=== PATIENT | female | born 1975 | race Caucasian/White ===

== ENCOUNTER 2017-03-27 14:42 | Emergency (ER) | payer OTHER ==
[~2017-03-27] VITALS: Ht 162.6 cm; Wt 47.0 kg
[~2017-03-27 14:42] MED LIST: ERGO1CAP30 PO; HYDR-3533 PO; LEVO.075 PO; PANT40TA3 PO; RECLTAB PO
[2017-03-27 15:04] VITALS: BP 106/70; PULSE 84; RESP 16; TEMP 98.1; O2SAT 99
[2017-03-27] MEDS ORDERED: SODIUM CHLOR 0.9% 1000 ML INJ 1,000 ML IV SCH (15:25)
[2017-03-27] MEDS ORDERED: KETOROLAC TROMETHAMINE 30 MG/ML (IVP) VIAL IV PUSH ONE (15:30)
[2017-03-27] MEDS ORDERED: MORPHINE SULFATE 4 MG/ML INJ IV PUSH ONE (15:30)
[2017-03-27] MEDS ORDERED: ONDANSETRON HCL 4 MG/2 ML VIAL IVP ONE (15:30)
[2017-03-27] MEDS ORDERED: SODIUM CHLORIDE 0.9% FLUSH 10 ML FLUSH IV FLUSH PRN (15:30)
[2017-03-27 15:46] LABS: BLOOD, URINE LARGE (NEG); GLUCOSE,URINE NEG (NEG); KETONE, URINE TRACE mg/dL (NEG); NITRITE,URINE NEG (NEG)
[2017-03-27 15:50] LABS: METHOD OF COLLECTION CLEAN CATCH; URINE COLOR YELLOW (YELLW/STRAW)
[2017-03-27 15:51] LABS: BACTERIA, URINE MOD /hpf; CALCIUM OXALATE CRYSTALS,URINE OCC /hpf; COMMENT (UR) CULTURE INDICATED; CULTURE IF INDICATED CULTURE INDICATED; SQUAMOUS EPITHELIAL CELL URINE 0-5 /hpf (0-5)
[2017-03-27 16:00] LABS: AUTOMATED NEUTROPHIL # 7.8 TH/MM3 (1.8-7.7); BASOPHIL # 0.1 TH/MM3 (0-0.2); BASOPHIL % 0.8 % (0.0-2.0); EOSINOPHIL # 0.1 TH/MM3 (0-0.4); EOSINOPHIL % 0.8 % (0.0-4.0); HEMATOCRIT 30.8 % (35.0-46.0); LYMPH % 16.2 % (9.0-44.0); LYMPHOCYTE # 1.6 TH/MM3 (1.0-4.8); MEAN CELL VOLUME 68.3 FL (80.0-100.0); MEAN CORPUSCULAR HEMOGLOBIN 20.7 PG (27.0-34.0); MEAN CORPUSCULAR HGB CONC 30.3 % (32.0-36.0); MONO % 5.5 % (0.0-8.0); NEUT % 76.7 % (16.0-70.0); PLATELET COUNT 424 TH/MM3 (150-450); RED CELL DISTRIBUTION WIDTH 17.1 % (11.6-17.2); WHITE BLOOD COUNT 10.2 TH/MM3 (4.0-11.0)
[2017-03-27 16:01] VITALS: RESP 16; O2SAT 99
[2017-03-27 16:03] LABS: HEMO FLAGS AUTO DIFF
[2017-03-27 16:10] LABS: POTASSIUM 3.2 MEQ/L (3.5-5.1)
[2017-03-27 16:15] LABS: APTT (PATIENT) 22.9 SEC (24.3-30.1); BICARBONATE 23.3 MEQ/L (21.0-32.0); INTERNATIONAL NORMALIZED RATIO 0.9 RATIO
[2017-03-27 16:19] LABS: INDIRECT BILIRUBIN 0.3 MG/DL (0.0-0.8); TOTAL BILIRUBIN ADULT 0.4 MG/DL (0.2-1.0)
--- NOTE | 2017-03-27 16:28 | RADHPO ---
EXAM DATE/TIME: 03/27/2017 16:08 [place] COMPARISON: No previous studies available for comparison. INDICATIONS : Left flank pain. ORAL CONTRAST: No oral contrast ingested. RADIATION DOSE: 6.15 CTDIvol (mGy) MEDICAL HISTORY : None SURGICAL HISTORY : None. ENCOUNTER: Initial ACUITY: 1 day PAIN SCALE: 1/10 LOCATION: Left flank TECHNIQUE: Volumetric scanning of the abdomen and pelvis was performed. Using automated exposure control and ad justment of the mA and/or kV according to patient size, radiation dose was kept as low as reasonably achievable to obtain optimal diagnostic quality images. FINDINGS: LOWER LUNGS: The visualized lower lungs are clear. LIVER: Homogeneous density without lesion. There is no dilation of the biliary tree. No calcified gallston es. SPLEEN: Normal size without lesion. PANCREAS: Within normal limits. KIDNEYS: Normal in size and shape. There is a tiny less than 1 mm right renal calculus and several tiny left r enal calculi. There is mild to moderate left hydronephrosis with dilatation of the proximal left uret er down to a 1 mm calculus located approximately 4-5 cm below the ureteral pelvic junction. ADRENAL GLANDS: Within normal limits. VASCULAR: There is no aortic aneurysm. BOWEL/MESENTERY: The stomach, small bowel, and colon demonstrate no acute abnormality. There is no free intraperitone al air or fluid. ABDOMINAL WALL: Within normal limits. RETROPERITONEUM: There is no lymphadenopathy. BLADDER: No wall thickening or mass. REPRODUCTIVE: Within normal limits. INGUINAL: There is no lymphadenopathy or hernia. MUSCULOSKELETAL: Within normal limits for patient age. CONCLUSION: 1. Tiny proximal left ureteral calculus measuring 1 mm with mild to moderate left hydronephrosis. 2. Tiny bilateral renal calculi. Jonny Thapa MD on March 27, 2017 at 16:23 Board Certified Radiologist. This report was verified electronically.
[2017-03-27] MEDS ORDERED: cefTRIAXone INJ 1,000 MG in SODIUM CHLORIDE 0.9% INJ 100 ML IV ONE (16:45)
[2017-03-27 16:53] LABS: OVALOCYTES 1+ (NORMAL); PLATELET ESTIMATE SMEAR NORMAL (NORMAL); PLATELET MORPHOLOGY NORMAL (NORMAL); SCAN/DIFF AUTO DIFF CONFIRMED
[2017-03-27] MEDS ORDERED: CIPR-9 PO (17:20)
[2017-03-27] MEDS ORDERED: IBUP-232 PO (17:20)
[2017-03-27] MEDS ORDERED: TAMS5CAP PO (17:20)
[2017-03-27] MEDS ORDERED: NORC5TAB PO (17:20)
--- NOTE | 2017-03-27 17:20 | PD ---
HPI Chief Complaint: Abdominal Pain Time Seen by Provider: 15:14 Travel History International Travel<30 days: No Contact w/Intl Traveler<30days: No Traveled to known affect area: No History of Present Illness HPI Patient is a 41-year-old female who comes in complaining of left-sided flank pain. She says the pain wraps around to her lower abdomen. She has had an EGD and CT scan in the past 5 weeks which revealed a small gastric ulcer, but she says this pain is different then any other pain she has had before. She has had some nausea and vomiting. She denies fever or chills or any dysuria. PFSH Past Medical History Diminished Hearing: No Thyroid Disease: Yes Tetanus Vaccination: Unknown ?: Not : 2 Para: 0 Past Surgical History Other Surgery: Yes (LEFT LUMPECTOMY) Social History Alcohol Use: No Tobacco Use: No Substance Use: No Allergies-Medications (Allergen,Severity, Reaction): Coded Allergies: No Known Allergies (Verified , 03/27/17) Reported Meds & Prescriptions Reported Meds & Active Scripts Active Cipro (Ciprofloxacin HCl) 500 Mg Tab 500 Mg PO BID 10 Days Panna Maria (Hydrocodone-Acetaminophen) 5-325 mg Tab 1 Tab PO Q6H PRN Ibuprofen 600 Mg Tab 600 Mg PO Q6H PRN Flomax (Tamsulosin HCl) 0.4 Mg Cap 0.4 Mg PO HS Synthroid (Levothyroxine Sodium) 75 Mcg Tab 75 Mcg PO DAILY Ergocalciferol 50,000 Unit Cap 50,000 Units PO Q7D Lortab (Hydrocodone-Acetaminophen) 5-325 Mg Tab 1-2 Tab PO Q6H PRN Reported Pantoprazole (Pantoprazole Sodium) 40 Mg Tab 40 Mg PO DAILY Review of Systems Except as stated in HPI: all other systems reviewed are Neg General / Constitutional: No: Fever, Chills HENT: No: Headaches, Lightheadedness Cardiovascular: No: Chest Pain or Discomfort Respiratory: No: Shortness of Breath Gastrointestinal: Positive: Nausea, Vomiting, Abdominal Pain Genitourinary: Positive: Flank Pain, No: Dysuria Musculoskeletal: No: Weakness Skin: No Rash, No Change in Pigmentation Neurologic: No: Weakness, Dizziness Physical Exam Narrative GENERAL: Awake and alert, in no acute distress. SKIN: Focused skin assessment warm/dry. HEAD: Atraumatic. Normocephalic. EYES: Pupils equal and round. No scleral icterus. ENT: Mucous membranes pink and moist. NECK: Trachea midline. No JVD. CARDIOVASCULAR: Regular rate and rhythm. No murmur appreciated. RESPIRATORY: No accessory muscle use. Clear to auscultation. Breath sounds equal bilaterally. GASTROINTESTINAL: Abdomen soft, nondistended. Left CVA tenderness. Mild tenderness to palpation across the lower abdomen. No rebound or guarding. MUSCULOSKELETAL: No obvious deformities. No clubbing. No cyanosis. No edema. NEUROLOGICAL: Awake and alert. No obvious cranial nerve deficits. Motor grossly within normal limits. Normal speech. PSYCHIATRIC: Appropriate mood and affect; insight and judgment normal. Data Data Last Documented VS Vital Signs Date Time Temp Pulse Resp B/P Pulse Ox O2 Delivery O2 Flow Rate FiO2 03/27/17 17:31 80 16 99 03/27/17 16:01 Room Air 03/27/17 15:04 98.1 106/70 Orders Basic Metabolic Panel (Bmp) (03/27/17 15:25) Complete Blood Count With Diff (03/27/17 15:25) Lipase (03/27/17 15:25) Prothrombin Time / Inr (Pt) (03/27/17 15:25) Act Partial Throm Time (Ptt) (03/27/17 15:25) Urinalysis - C+S If Indicated (03/27/17 15:25) Ua Includes Microscopic (03/27/17 15:25) Ct Abd/Pel W/O Iv Contrast (03/27/17 15:25) Iv Access Insert/Monitor (03/27/17 15:25) Ecg Monitoring (03/27/17 15:25) Oximetry (03/27/17 15:25) Morphine Inj (Morphine Inj) (03/27/17 15:30) Ondansetron Inj (Zofran Inj) (03/27/17 15:30) Sodium Chlor 0.9% 1000 Ml Inj (Ns 1000 M (03/27/17 15:25) Sodium Chloride 0.9% Flush (Ns Flush) (03/27/17 15:30) Ed Urine Pregnancytest Poc (03/27/17 15:25) Hepatic Functional Panel (03/27/17 15:25) Ketorolac Inj (Toradol Inj) (03/27/17 15:30) Urine Culture (03/27/17 15:30) Ceftriaxone Inj (Rocephin Inj) (03/27/17 16:45) Labs Laboratory Tests Test 03/27/17 03/27/17 15:30 15:45 Urine Collection Type CLEAN CATCH Urine Color YELLOW Urine Turbidity CLOUDY Urine pH 6.0 Urine Specific [place] 1.025 Urine Protein 30 mg/dL Urine Glucose (UA) NEG mg/dL Urine Ketones TRACE mg/dL Urine Occult Blood LARGE Urine Nitrite NEG Urine Bilirubin NEG Urine Leukocyte Esterase SMALL Urine RBC 50-99 /hpf Urine WBC 9-14 /hpf Urine Squamous Epithelial 0-5 /hpf Cells Urine Calcium Oxalate Crystals OCC /hpf Urine Amorphous Sediment FEW Urine Bacteria MOD /hpf Microscopic Urinalysis Comment CULTURE INDICATED White Blood Count 10.2 TH/MM3 Red Blood Count 4.50 MIL/MM3 Hemoglobin 9.3 GM/DL Hematocrit 30.8 % Mean Corpuscular Volume 68.3 FL Mean Corpuscular Hemoglobin 20.7 PG Mean Corpuscular Hemoglobin 30.3 % Concent Red Cell Distribution Width 17.1 % Platelet Count 424 TH/MM3 Mean Platelet Volume 8.5 FL Neutrophils (%) (Auto) 76.7 % Lymphocytes (%) (Auto) 16.2 % Monocytes (%) (Auto) 5.5 % Eosinophils (%) (Auto) 0.8 % Basophils (%) (Auto) 0.8 % Neutrophils # (Auto) 7.8 TH/MM3 Lymphocytes # (Auto) 1.6 TH/MM3 Monocytes # (Auto) 0.6 TH/MM3 Eosinophils # (Auto) 0.1 TH/MM3 Basophils # (Auto) 0.1 TH/MM3 CBC Comment AUTO DIFF Differential Comment AUTO DIFF CONFIRMED Platelet Estimate NORMAL Platelet Morphology Comment NORMAL Ovalocytes 1+ Prothrombin Time 10.0 SEC Prothromb Time International 0.9 RATIO Ratio Activated Partial 22.9 SEC Thromboplast Time Sodium Level 137 MEQ/L Potassium Level 3.2 MEQ/L Chloride Level 105 MEQ/L Carbon Dioxide Level 23.3 MEQ/L Anion Gap 9 MEQ/L Blood Urea Nitrogen 10 MG/DL Creatinine 0.89 MG/DL Estimat Glomerular Filtration 70 ML/MIN Rate Random Glucose 101 MG/DL Calcium Level 8.7 MG/DL Total Bilirubin 0.4 MG/DL Direct Bilirubin 0.1 MG/DL Indirect Bilirubin 0.3 MG/DL Aspartate Amino Transf 21 U/L (AST/SGOT) Alanine Aminotransferase 23 U/L (ALT/SGPT) Alkaline Phosphatase 63 U/L Total Protein 7.8 GM/DL Albumin 3.4 GM/DL Lipase 176 U/L [facility] Medical Decision Making Medical Screen Exam Complete: Yes Emergency Medical Condition: Yes Medical Record Reviewed: Yes Differential Diagnosis UTI versus renal stone versus pyelonephritis. Narrative Course Patient is a 41-year-old female comes in complaining of left flank pain. Exam shows left CVA tenderness. IV established, labs sent. Patient given IV fluids , Toradol, morphine, Zofran. Urinalysis is positive for UTI. CT of the abdomen and pelvis shows a 1 mm stone causing mild to moderate hydronephrosis. Creatinine is within normal limits. Last 24 hours Impressions Abdomen/Pelvis CT 03/27/17 1525 Signed Impressions: Service Date/Time: Monday, March 27, 2017 16:08 - CONCLUSION: 1. Tiny proximal left ureteral calculus measuring 1 mm with mild to moderate left hydronephrosis. 2. Tiny bilateral renal calculi. Jonny Thapa MD Patient given Rocephin. She reports feeling much better. We'll discharge with prescriptions for Flomax , Cipro, ibuprofen, Panna Maria. Advised follow-up with her doctor. Advised follow- up with urology. Advised to return to the ED as needed for any worsening symptoms. Diagnosis Primary Impression: Renal stone Additional Impression: UTI (urinary tract infection) Qualified Code: N30.00 - Acute cystitis without hematuria Referrals: Geronimo Junior MD call for appointment Patient Instructions: General Instructions, Kidney Stones (ED), Urinary Tract Infection in Women (ED) Additional Instructions: Follow up with your primary doctor and urology. Take Ibuprofen as needed for pain and Panna Maria for severe pain. Be careful as Panna Maria may make you drowsy. Take all of your antibiotic. Drink plenty of fluids. Return to the ED as needed for any worsening symptoms. Scripts Ciprofloxacin (Cipro)500 Mg [id number] Mg PO BID 10 Days Ref 0 Prov:Evelyn Doty MD 03/27/17 Hydrocodone-Acetaminophen (P[place])5-325 mg Tab1 Tab PO Q6H PRN (PAIN) #12 TAB Ref 0 Prov:Evelyn Doty MD 03/27/17 Ibuprofen 600 Mg [id number] Mg PO Q6H PRN (Pain/Inflammation) #20 TAB Ref 0 Prov:Evelyn Doty MD 03/27/17 Tamsulosin (Flomax)0.4 Mg Cap0.4 Mg PO HS #7 CAP Ref 0 Prov:Evelyn Doty MD 03/27/17 Disposition: 01 DISCHARGE HOME Condition: Stable Evelyn Doty MD March 27, 2017 17:20
[2017-05-02] MEDS ORDERED: PANT40TA3 PO (13:33)
== END 2017-03-27 17:52 | disposition home or self-care (01) ==
LOC: PHEFT 14:42
DX: N30.00 Acute cystitis without hematuria (principal); N20.0 Calculus of kidney; N13.2 Hydronephrosis with renal and ureteral calculous obstruction; B96.89 Other specified bacterial agents as the cause of diseases classified elsewhere
CPT/HCPCS: 74176; 80048; 80076; 81001; 83690; 84703; 85025; 85610; 85730; 87086; 96361; 96374; 96375; 99285; J0696; J1885; J2270; J2405; J7030